=== PATIENT | male | born 1950 | race African-American/Black ===

== ENCOUNTER 2018-10-12 18:27 | Emergency (ER) | payer MEDICARE, OTHER ==
[~2018-10-12] VITALS: Ht 172.7 cm; Wt 65.0 kg
[2018-10-12 18:30] VITALS: Ht 172.7 cm; Wt 65.0 kg
--- NOTE | 2018-10-12 19:19 | ERD ---
ER Documentation Chief Complaint Chief Complaint HAS NOT ATTENDED DIALYSIS IN OVER A WEEK, DUE TO "TRANSPORTATION ISSUES". HPI 68-year-old male brought in by private ambulance. We were told that the patient has missed dialysis for over 1 week due to "transportation issues". Otherwise history was limited and the patient is clearly confused and unable to provide an adequate history. He does tell me that his primary care doctor is Dr. York, who requested the patient come into the ER. Patient has no complaints at this time. ROS All systems reviewed and are negative except as per history of present illness. Allergies Allergies: Coded Allergies: No Known Allergy (Unverified , 10/12/18) PMhx/Soc History of Surgery: Yes (AV fistula bilateral upper extremities) Hx Neurological Disorder: Yes (Dementia) Hx Cardiac Disorders: Yes (Hypertension) Hx Miscellaneous Medical Probl: Yes (ESRD on hemodialysis, diabetes) Hx Alcohol Use: No Hx Substance Use: No Hx Tobacco Use: No Smoking Status: Never smoker FmHx Family History: No diabetes Physical Exam Vitals Vital Signs Date Temp Pulse Resp B/P (MAP) Pulse Ox O2 O2 Flow FiO2 Time Delivery Rate 10/12/18 98.2 72 14 139/78 100 Room Air 22:34 (98) 10/12/18 98.2 76 14 142/75 100 Room Air 21:34 (97) 10/12/18 97.9 78 20 137/85 98 18:30 (102) Physical Exam Const: No acute distress Head: Atraumatic Eyes: Normal Conjunctiva ENT: Normal External Ears, Nose and Mouth. Neck: Full range of motion. No meningismus. Resp: Clear to auscultation bilaterally Cardio: Regular rate and rhythm, no murmurs Abd: Soft, non tender, non distended. Normal bowel sounds Skin: No petechiae or rashes Back: No midline or flank tenderness Ext: No cyanosis, or edema Neur: Awake and alert, oriented x2, normal speech, no facial asymmetry, moving all extremities Psych: Normal Mood and Affect Result Diagram: 10/12/185 10/12/181854 Results 24 hrs Laboratory Tests Test 10/12/18 18:55 White Blood Count 12.5 10^3/ul Red Blood Count 3.41 10^6/ul Hemoglobin 10.4 g/dl Hematocrit 32.6 % Mean Corpuscular Volume 95.6 fl Mean Corpuscular Hemoglobin 30.5 pg Mean Corpuscular Hemoglobin Concent 31.9 g/dl Red Cell Distribution Width 13.7 % Platelet Count 380 10^3/UL Mean Platelet Volume 9.6 fl Immature Granulocytes % 0.500 % Neutrophils % 82.0 % Lymphocytes % 8.5 % Monocytes % 5.7 % Eosinophils % 2.9 % Basophils % 0.4 % Nucleated Red Blood Cells % 0.0 /100WBC Immature Granulocytes # 0.060 10^3/ul Neutrophils # 10.3 10^3/ul Lymphocytes # 1.1 10^3/ul Monocytes # 0.7 10^3/ul Eosinophils # 0.4 10^3/ul Basophils # 0.1 10^3/ul Nucleated Red Blood Cells # 0.0 10^3/ul Sodium Level 140 mmol/L Potassium Level 5.6 mmol/L Chloride Level 96 mmol/L Carbon Dioxide Level 32 mmol/L Anion Gap 12 Blood Urea Nitrogen 74 mg/dl Creatinine 10.00 mg/dl Est Glomerular Filtrat Rate mL/min 6 mL/min Glucose Level 149 mg/dl Calcium Level 9.7 mg/dl Procedures/[facility] EMERGENT LABS AND DIAGNOSTIC STUDIES: Lab Results above were reviewed and interpreted by me. CBC: Mild leukocytosis, unclear etiology. Mild anemia, likely secondary to chronic disease BMP: Elevated BUN and creatinine with mild hyperkalemia, consistent with end- stage renal disease. 12-lead EKG was interpreted by Arturo Cary MD: Normal Sinus Rhythm with ventricular rate of 78 beats per minute Normal axis Normal intervals Diffuse ST and T wave changes, nonspecific No STEMI. Initial Nursing notes reviewed. Previous Medical Records requested via the Electronic Health Record. EMERGENCY DEPARTMENT COURSE / MEDICAL DECISION MAKING: I contacted the patient's primary care doctor, Dr. York. It seems that he had requested the patient be sent to [facility] for admission and dialysis. However the ambulance brought the patient to the wrong hospital. He asked me to evaluate and stabilize the patient. If stable, he would like to transfer the patient [facility]. From my standpoint, the patient is stable for transfer. This was arranged. Patient was agreeable to plan. He was discharged in a stable condition to [facility]. Departure Diagnosis: Primary Impression: ESRD on hemodialysis Additional Impression: Missed dialysis Condition: KAYLA Lucas MD Oct 12, 2018 19:19
[2018-10-12 22:34] VITALS: BP 139/78; PULSE 72; RESP 14
== END 2018-10-12 23:05 | disposition short-term general hospital (02) ==
LOC: E/R 18:27
DX: I12.0 Hypertensive chronic kidney disease with stage 5 chronic kidney disease or end stage renal disease (principal); E11.22 Type 2 diabetes mellitus with diabetic chronic kidney disease; Z99.2 Dependence on renal dialysis
CPT/HCPCS: 36415; 80048; 85025; 93005